=== PATIENT | male | born 1995 | race Caucasian/White ===

== ENCOUNTER 2017-04-25 21:59 | Emergency (ER) | payer SELFPAY ==
[2017-04-25 22:00] VITALS: BP 132/74; PULSE 65; RESP 16; TEMP 98; O2SAT 97
[2017-04-25] MEDS ORDERED: IBUPROFEN 600 MG TAB PO ONE (22:45)
--- NOTE | 2017-04-25 22:47 | PD ---
HPI Chief Complaint: Cold / Flu Symptoms Time Seen by Provider: 22:29 Travel History International Travel<30 days: No Contact w/Intl Traveler<30days: No Traveled to known affect area: No History of Present Illness HPI 21-year-old male here for evaluation of cold/flulike symptoms for the last week. The patient reports having had a sore throat which seems to be improving , nasal congestion, and nonproductive cough. He denies fevers or chills. He does complain of some generalized body aches. No vomiting or diarrhea. There is some slight epigastric and upper abdominal discomfort. No urinary symptoms. [facility] Past Medical History Medical History: Denies Significant Hx Immunizations Current: Yes Past Surgical History Surgical History: No Previous Surgery Social History Alcohol Use: Yes Tobacco Use: Yes Substance Use: No Allergies-Medications (Allergen,Severity, Reaction): Coded Allergies: No Known Allergies (Verified Allergy, Unknown, 04/25/17) Review of Systems Except as stated in HPI: all other systems reviewed are Neg Physical Exam Narrative GENERAL: Well-developed, well-nourished, sitting comfortably on stretcher, no apparent distress. SKIN: Focused skin assessment warm/dry. No rash. HEAD: Atraumatic. Normocephalic. EYES: Pupils equal and round. No scleral icterus. No injection or drainage. ENT: No nasal bleeding or discharge. Mucous membranes pink and moist. NECK: Trachea midline. No JVD. No nuchal rigidity. CARDIOVASCULAR: Regular rate and rhythm. RESPIRATORY: No accessory muscle use. Clear to auscultation. Breath sounds equal bilaterally. GASTROINTESTINAL: Abdomen soft, non-tender, nondistended. MUSCULOSKELETAL: No obvious deformities. No clubbing. No cyanosis. No edema. NEUROLOGICAL: Awake and alert. No obvious cranial nerve deficits. Motor grossly within normal limits. Normal speech. PSYCHIATRIC: Appropriate mood and affect; insight and judgment normal. Data Data Last Documented VS Vital Signs Date Time Temp Pulse Resp B/P (MAP) Pulse Ox O2 Delivery O2 Flow Rate FiO2 04/25/17 22:00 98.0 65 16 132/74 (93) 97 Room Air Orders Orders Chest, Single Ap (04/25/17 ) Ibuprofen (Motrin) (04/25/17 22:45) MDM Medical Decision Making Medical Screen Exam Complete: Yes Emergency Medical Condition: Yes Differential Diagnosis URI, viral illness, sinusitis, bronchitis, pneumonia Narrative Course Vital signs show heart rate 65, blood pressure 132/74, pulse ox 97% on room air , oral temp of 98F. Chest x-ray: CONCLUSION: No evidence of acute cardiopulmonary disease. Patient is resting comfortably. He likely has a viral URI. Given his duration of symptoms, I will start him on a Z-Cameron. He was informed to follow-up with a primary care physician this week. He was informed on when to return to the emergency department. He verbalizes understanding and agreement with plan. Diagnosis Primary Impression: URI (upper respiratory infection) Qualified Codes: J06.9 - Acute upper respiratory infection, unspecified Referrals: [facility] 3 days Additional Instructions: Follow-up with a primary care physician this week. Return to the emergency department for worsening symptoms or any other concerns. Scripts Azithromycin (Zithromax Z-Cameron) 250 Mg Dspk 250 MG PO DIRECTED for Infection, #1 DSPK 0 Refills 500 MG (2 tabs) day 1, then 1 tab days 2-5. Prov: Johan Hudson MD 04/25/17 Disposition: 01 DISCHARGE HOME Condition: Stable Johan Hudson MD Apr 25, 2017 22:47
--- NOTE | 2017-04-25 23:17 | RADRPT ---
EXAM DATE/TIME: 04/25/2017 22:48 [place] COMPARISON: No previous studies available for comparison. INDICATIONS : Flu-like symptoms for 1 week MEDICAL HISTORY : None. SURGICAL HISTORY : None. ENCOUNTER: Initial ACUITY: 1 week PAIN SCORE: 0/10 LOCATION: Bilateral chest FINDINGS: A single view of the chest demonstrates the lungs to be symmetrically aerated without evidence of mas s, infiltrate or effusion. The cardiomediastinal contours are unremarkable. Osseous structures are intact. CONCLUSION: No evidence of acute cardiopulmonary disease. Malcolm Gonzalez MD on April 25, 2017 at 23:16 Board Certified Radiologist. This report was verified electronically.
[2017-04-25] MEDS ORDERED: ZITHTAB PO (23:32)
== END 2017-04-26 01:32 | disposition home or self-care (01) ==
LOC: NEPD 21:59
DX: J06.9 Acute upper respiratory infection, unspecified (principal); R10.13 Epigastric pain; Z72.0 Tobacco use
CPT/HCPCS: 71010; 99283

== ENCOUNTER 2017-10-10 17:20 | Emergency (ER) | payer OTHER ==
[~2017-10-10 17:20] MED LIST: ZITHTAB PO
[2017-10-10 17:40] VITALS: BP 130/72; PULSE 68; RESP 18; TEMP 99.4; O2SAT 97
[2017-10-10] MEDS ORDERED: AMOX875T PO (22:07)
--- NOTE | 2017-10-10 22:12 | PD ---
HPI Chief Complaint: Cold / Flu Symptoms Time Seen by Provider: 21:49 Travel History International Travel<30 days: No Contact w/Intl Traveler<30days: No Traveled to known affect area: No History of Present Illness HPI 22-year-old male presents emergency department with a four-day history of headache, sore throat, anterior neck pain and general malaise. He has had some runny nose but denies any cough or shortness of breath. No nausea vomiting. No abdominal pain or diarrhea. No diffuse myalgias or arthralgias. Symptoms are moderate. Worse with swallowing. No alleviating factors. PFSH Past Medical History Medical History: Denies Significant Hx Immunizations Current: Yes Tetanus Vaccination: < 5 Years Past Surgical History Surgical History: No Previous Surgery Social History Alcohol Use: Yes Tobacco Use: Yes Substance Use: No Allergies-Medications (Allergen,Severity, Reaction): Coded Allergies: No Known Allergies (Verified Allergy, Unknown, 04/25/17) Reported Meds & Prescriptions Reported Meds & Active Scripts Active Amoxicillin 875 Mg Tab 875 Mg PO BID 10 Days Zithromax Z-Cameron (Azithromycin) 250 Mg Dspk 250 Mg PO DIRECTED 500 MG (2 tabs) day 1, then 1 tab days 2-5. Review of Systems General / Constitutional: No: Fever Eyes: No: Visual changes HENT: Positive: Sore Throat, Congestion, Neck Stiffness, Neck Pain, No: Headaches Cardiovascular: No: Chest Pain or Discomfort Respiratory: No: Shortness of Breath Gastrointestinal: No: Nausea, Vomiting, Abdominal Pain Genitourinary: No: Dysuria Musculoskeletal: No: Pain Skin: No Rash Neurologic: No: Weakness Psychiatric: No: Depression Endocrine: No: Polydipsia Hematologic/Lymphatic: No: Easy Bruising Physical Exam Narrative GENERAL: Well-developed, well-nourished in no acute distress. Nontoxic appearing. HEAD: Normocephalic, atraumatic. EYES: Pupils equal round and reactive. Extraocular motions intact. No scleral icterus. No injection or drainage. ENT: TMs clear without erythema. The external auditory canals clear. Nose: clear . Posterior pharynx is erythematous and moist. Positive tonsillar edema with a small amount of white exudate. Uvula midline. Airway patent. NECK: Trachea midline.Supple, tender cervical adenopathy, moves head freely. No central bony tenderness or spasm. CARDIOVASCULAR: Regular rate and rhythm without murmurs, gallops, or rubs. RESPIRATORY: Clear to auscultation. Breath sounds equal bilaterally. No wheezes , rales, or rhonchi. GASTROINTESTINAL: Abdomen soft, non-tender, nondistended. No hepato-splenomegaly , or palpable masses. No guarding. EXTREMITIES: No clubbing, cyanosis, or edema. No joint tenderness, effusion, or edema noted. BACK: Nontender without deformity or crepitance. No flank tenderness. Data Data Last Documented VS Vital Signs Date Time Temp Pulse Resp B/P (MAP) Pulse Ox O2 Delivery O2 Flow Rate FiO2 10/10/17 17:40 99.4 68 18 130/72 (91) 97 Orders Orders Ed Discharge Order (10/10/17 22:06) Amoxicillin (Trimox) (10/10/17 22:15) Ibuprofen (Motrin) (10/10/17 22:15) MDM Medical Decision Making Medical Screen Exam Complete: Yes Emergency Medical Condition: Yes Medical Record Reviewed: Yes Differential Diagnosis MDM: High Differential diagnoses: Strep throat, viral pharyngitis, mono, peritonsillar abscess, retropharyngeal abscess, Wili's angina Narrative Course Patient appears to have strep throat. He is given amoxicillin 875 mg by mouth and Motrin 6 and a milligrams by mouth. Diagnosis Primary Impression: strep throat Patient Instructions: General Instructions Departure Forms: School Release, Please excuse from school until (free text option): No school 3 days. Tests/Procedures Additional Instructions: Rest. Force fluids. Saltwater gargles. Tylenol and Advil. Chloraseptic [place] Cepastat lozenge. Amoxicillin. Follow-up with a primary care doctor in one week. Return to the ER if any problems. Med/Other Pt SpecificInfo: Prescription(s) given Scripts Amoxicillin (Amoxicillin) 875 Mg Tab 875 MG PO BID for Infection for 10 Days, #20 TAB 0 Refills Prov: Keron Cabrera MD 10/10/17 Disposition: 01 DISCHARGE HOME Condition: Stable Ritchie Mora Oct 10, 2017 22:11
[2017-10-10] MEDS ORDERED: IBUPROFEN 600 MG TAB PO ONE (22:15)
[2017-10-10] MEDS ORDERED: AMOXICILLIN 875 MG TAB PO ONE (22:15)
== END 2017-10-10 22:52 | disposition home or self-care (01) ==
LOC: NED 17:20 → NEPK 22:52
DX: J02.0 Streptococcal pharyngitis (principal); Z72.0 Tobacco use
CPT/HCPCS: 99283